=== PATIENT | female | born 1965 | race Asian ===

== ENCOUNTER 2019-04-23 19:01 | Emergency (ER) | payer OTHER ==
[~2019-04-23] VITALS: Ht 165.1 cm; Wt 83.9 kg
[2019-04-23 20:23] VITALS: BP 135/79; TEMP 98.14
== END 2019-04-23 20:23 | disposition home or self-care (01) ==
LOC: ED 19:01
DX: M25.562 Pain in left knee (principal); M25.561 Pain in right knee
CPT/HCPCS: 99282; 99283